=== PATIENT | female | born 2000 | race Caucasian/White ===

== ENCOUNTER → 2019-10-27 | Outpatient (CLI) | payer OTHER, BC ==
[~2019-10-27] MED LIST: DEXT5TAB27 PO
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
== END | disposition home or self-care (01) ==
LOC: KCIC MRI 10:46
PROVIDERS: ATTEND Physician Assistant Medical
DX: M25.461 Effusion, right knee (principal)
CPT/HCPCS: 73721